=== PATIENT | male | born 1975 | race Caucasian/White ===

== ENCOUNTER 2022-06-28 02:19 | Emergency (ER) | payer MEDICAID ==
[~2022-06-28] VITALS: Ht 172.7 cm; Wt 110.0 kg
[2022-06-28 03:08] LABS: Basophils # (auto) 0.1 10 ^3/uL (0-0.2); Eosinophils # (auto) 0.5 10 ^3/uL (0-0.8); Eosinophils % (auto) 7.9 % (0.0-7.0); Hematocrit 45.3 % (41.0-53.0); Hemoglobin 15.8 g/dL (13.5-17.5); Lymphocytes # (auto) 1.1 10 ^3/uL (0.4-5.4); Lymphocytes % (auto) 16.4 % (10.0-50.0); Mean Corpuscular Hemoglobin 30.4 pg (28.0-32.0); Mean Corpuscular Hgb Conc. 34.9 g/dL (32.0-36.0); Mean Corpuscular Volume 87.1 fL (80.0-100.0); Monocytes # (auto) 0.6 10 ^3/uL (0-1.3); Monocytes % (auto) 9.2 % (0.0-12.0); Neutrophils # (auto) 4.3 10 ^3/uL (1.6-8.6); Neutrophils % (auto) 65.5 % (37.0-80.0); Nucleated Red Blood Cells % 0.1 %; Red Cell Distribution Width 13.1 % (11.8-14.3); White Blood Cell 6.5 10^3/uL (4.4-10.8)
[2022-06-28 03:21] LABS: Albumin 3.7 g/dL (3.4-5.0); Anion Gap 7 (5-15); Blood Alcohol < 3.0 mg/dL (0-5); Calcium 8.8 mg/dL (8.5-10.1); Carbon Dioxide 26 mmol/L (21-32); Chloride 105 mmol/L (98-107); Glucose 283 mg/dL (74-106); Potassium 3.7 mmol/L (3.5-5.1); Sodium 138 mmol/L (136-145)
[2022-06-28 03:24] LABS: Alanine Aminotransferase 38 U/L (16-61); Alkaline Phosphatase 90 U/L (45-117); Aspartate Aminotransferase 24 U/L (15-37); Bilirubin, Total 0.5 mg/dL (0.2-1.0); Blood Urea Nitrogen 11 mg/dL (7-18); GFR African American 102 mL/min; GFR Non-African American 84 mL/min; Total Protein 7.1 g/dL (6.4-8.2)
[2022-06-28 04:40] LABS: Alcohol, Urine < 3.0 mg/dL (0-10); Amphetamine Screen, Urine NEGATIVE (NEGATIVE); Barbiturate Scree,Urine NEGATIVE (NEGATIVE); Benzodiazephine Screen, Urine NEGATIVE (NEGATIVE); Cannabinoid Screen, Urine POSITIVE (NEGATIVE); Cocaine Screen, Urine NEGATIVE (NEGATIVE); Opiate Scree,Urine NEGATIVE (NEGATIVE); Phencyclidine Screen, Urine NEGATIVE (NEGATIVE)
[2022-06-28 07:00] VITALS: BP 111/81
== END 2022-06-28 07:28 | disposition home or self-care (01) ==
LOC: EDBD 02:19 → ER 02:22
DX: F44.4 Conversion disorder with motor symptom or deficit (principal); G47.00 Insomnia, unspecified; F12.90 Cannabis use, unspecified, uncomplicated; J45.909 Unspecified asthma, uncomplicated; Z20.822 Contact with and (suspected) exposure to COVID-19
CPT/HCPCS: 36415; 70450; 71045; 80053; 80307; 80320; 83880; 84484; 85025; 87426; 93005

== ENCOUNTER 2024-04-17 14:38 | Emergency (ER) | payer MEDICAID ==
[~2024-04-17] VITALS: Ht 170.2 cm; Wt 113.0 kg
[2024-04-17 16:54] LABS: Basophils # (auto) 0.1 10 ^3/uL (0-0.2); Eosinophils # (auto) 1.1 10 ^3/uL (0-0.8); Eosinophils % (auto) 14.3 % (0.0-7.0); Hematocrit 48.2 % (41.0-53.0); Hemoglobin 16.8 g/dL (13.5-17.5); Lymphocytes # (auto) 1.6 10 ^3/uL (0.4-5.4); Lymphocytes % (auto) 21.4 % (10.0-50.0); Mean Corpuscular Hemoglobin 31.9 pg (28.0-32.0); Mean Corpuscular Volume 91.4 fL (80.0-100.0); Monocytes # (auto) 0.5 10 ^3/uL (0-1.3); Monocytes % (auto) 6.3 % (0.0-12.0); Neutrophils # (auto) 4.4 10 ^3/uL (1.6-8.6); Nucleated Red Blood Cells % 0.1 %; Platelet Count (auto) 269 10^3/uL (140-450); Red Blood Cells 5.27 10^6/uL (4.5-5.90); Red Cell Distribution Width 13.1 % (11.8-14.3); White Blood Cell 7.7 10^3/uL (4.4-10.8)
[2024-04-17 17:04] LABS: Chloride 107 mmol/L (98-107); Potassium 3.5 mmol/L (3.5-5.1); Sodium 140 mmol/L (136-145)
[2024-04-17 17:05] LABS: Anion Gap 5 (5-15); Carbon Dioxide 28 mmol/L (20-30)
[2024-04-17 17:06] LABS: Calcium 9.9 mg/dL (8.7-10.4)
[2024-04-17 17:11] LABS: Blood Urea Nitrogen 11 mg/dL (9-23); Glucose 146 mg/dL (74-106)
[2024-04-17 19:05] VITALS: PULSE 93; RESP 16; O2SAT 93
[2024-04-17] MEDS ORDERED: PRED20TA2 PO (19:46)
[2024-04-17] MEDS ORDERED: AZITTAB PO (19:46)
[2024-04-17] MEDS: ALBUTEROL SULF 2.5 MG/0.5ML(0.5%) NEB SOLN NEB ONE (20:10)
[2024-04-17 21:30] VITALS: BP 152/98; PULSE 77; RESP 13; TEMP 98.4; O2SAT 96
[2024-04-17] MEDS: methylPREDNISolone SOD SUCC 125 MG/2 ML VL IM ONE (21:45)
[2024-04-17 22:10] VITALS: RESP 18; O2SAT 98
[2024-04-17] MEDS: IPRATROPIUM BROM 0.5 MG/2.5ML INH SOL NEB ONE (22:10)
== END 2024-04-17 19:47 | disposition home or self-care (01) ==
LOC: ER 14:38 → EDUNIT# 14:38 → EDBD 14:38 → ER 19:47
DX: J40 Bronchitis, not specified as acute or chronic (principal); E78.5 Hyperlipidemia, unspecified
CPT/HCPCS: 36415; 71045; 80048; 84484; 85025; 94640; 96372; 99284; J2919